=== PATIENT | female | born 1995 ===

== ENCOUNTER 2019-07-17 17:24 | Emergency (ER) | payer SELFPAY ==
[2019-07-17] MEDS ORDERED: Sodium Chloride 0.9% 2.5 ML Syringe FLUSH PRN (17:25)
[2019-07-17] MEDS ORDERED: Sodium Chloride 0.9% 1,000 ML IV ONE (17:25)
[2019-07-17] MEDS ORDERED: Sodium Chloride 0.9% 10 ML Syringe FLUSH PRN (17:25)
[2019-07-17] MEDS ORDERED: metroNIDAZOLE/Normal Saline 100 ML ONE (17:29)
[2019-07-17] MEDS ORDERED: Levofloxacin/Dextrose 5%-Water 500 MG in Premix Bag 1 BAG IV ONE (17:32)
[2019-07-17] MEDS ORDERED: ceFAZolin 1 GM in Premix Bag 1 BAG IV ONE (17:32)
[2019-07-17] MEDS ORDERED: Acetaminophen 650 MG Supp RECTAL ONE (17:32)
[2019-07-17] MEDS ORDERED: propofoL 50 ML ONE (17:35)
[2019-07-17] MEDS ORDERED: Propofol 200 MG/20 ML SDV IVPUSH ONE (17:35)
--- NOTE | 2019-07-17 17:55 | EDM.PDOC ---
ED HPI GENERAL MEDICAL PROBLEM - General Chief Complaint: Drug or Alcohol Abuse Stated Complaint: CODE BLUE Time Seen by Provider: 07/17/19 17:24 Source of Information: Reports: EMS Notes Reviewed History Limitations: Reports: Altered Mental Status, Respiratory Distress - History of Present Illness INITIAL COMMENTS - FREE TEXT/NARRATIVE: 33-year-old female presents to the emergency room polydrug overdose. Patient apparently aspirated prior to coming to the emergency room at the time is altered with a saturation in the 70s. While evaluating the patient felt that she needed immediate intubation. Patient had multiple bouts of emesis. No other information available. Severity: Severe ED ROS GENERAL - Review of Systems Review Of Systems: See Below (Able to obtain. Patient in respiratory distress underwent CPR and CODE BLUE) Constitutional: Reports: No Symptoms, Fever - Physical Exam Exam: See Below Text/Narrative:: 23-year-old female presents the emergency room with severe respiratory distress. Patient vomiting altered suction applied. Patient immediately intubated after 100 hours of succinylcholine and 2 mg of Versed. See the cords and lots of vomitus. Placement of endotracheal tube under direct visualization via kaleidoscope. 23 / at lips. Good color change and gurgling breath sounds bilaterally. Patient name lost her pulse 1 amp of epi was given IV. CPR instituted. After less than 5 minutes patient got her blood pressure and pulse back heart rate in the 150s. O2 sat 89%. Temperature is 107.4. Packs to her groin and armpits she is coming temperature is 105.5. Heart rate is 149 from 180, blood pressure is 126/52 and CO2 is 28. I have reviewed the chest x-ray and the tube is in good placement. And has been given antibiotics Ancef, Flagyl, and Levaquin. Unable to give additional history of the patient no records on this patient in our charts. Patient has no records at [place] . Of note patient has had 2 and half liters with less than 10 cc of IV fluids. ABG is pending . Discussed the case with Dr. Juan Ramon Bennett . He has accepted the patient to the ER Exam Limited By: Respiratory Distress General Appearance: Severe Distress Eye Exam: Right Eye: Abnormal EOM, Abnormal Pupil Nose: Normal Inspection, Normal Mucosa Throat/Mouth: Other (In the oral cavity / Vomitous ) Neck: Normal Inspection Cardiovascular: Tachycardia GI/Abdominal: Normal Bowel Sounds Extremities: Normal Inspection, Mottled (Multiple cuts to extremities) Skin Exam: Mottled ED Add Procedures - Additional/Other Procedure(s) Procedure(s) (Free Text): Patient intubated/7.5. Good. color change /had to suction large amount of vomitus./Direct visualization of the cords./23 at lips /fusion with succinylcholine 100/Versed 2/50 rocuronium . Sounds coarse bilaterally/1 attempts ABG performed in the left femoral EKG INTERPRETATION Rhythm: Other (sinus /Tachycardia) QRS: Normal ST-T: Normal QT: Normal Course - Orders/Labs/Meds Orders: Active Orders 24 hr Category Date Time Status EKG Documentation Completion [RC] STAT Care 07/17/19 17:26 Active Chest 1V Frontal [CR] Stat Exams 07/17/19 17:25 Ordered ACETAMINOPHEN [CHEM] Stat Lab 07/17/19 17:25 Ordered CBC WITH AUTO DIFF [HEME] Stat Lab 07/17/19 17:24 Ordered COMPREHENSIVE METABOLIC PN,CMP [CHEM] Stat Lab 07/17/19 17:25 Ordered CULTURE BLOOD [BC] Stat Lab 07/17/19 17:25 Ordered CULTURE BLOOD [BC] Stat Lab 07/17/19 17:25 Ordered DRUG SCREEN, URINE [URCHEM] Stat Lab 07/17/19 17:25 Ordered HCG QUALITATIVE,URINE [URCHEM] Stat Lab 07/17/19 17:25 Ordered SALICYLATE [CHEM] Stat Lab 07/17/19 17:25 Ordered UA RFX NARCISO AND CULT IF INDIC [URIN] Stat Lab 07/17/19 17:25 Ordered Levofloxacin/Dextrose 5%-Water [Levaquin in D5W 500 MG/ Med 07/17/19 17:32 Active 100 ML] 500 mg Premix Bag 1 bag IV ONETIME Sodium Chloride 0.9% [Normal Saline] 1,000 ml Med 07/17/19 17:25 Active IV STAT Sodium Chloride 0.9% [Saline Flush] Med 07/17/19 17:25 Active 10 ml FLUSH ASDIRECTED PRN Sodium Chloride 0.9% [Saline Flush] Med 07/17/19 17:25 Active 2.5 ml FLUSH ASDIRECTED PRN ceFAZolin [Ancef] 1 gm Med 07/17/19 17:32 Active Premix Bag 1 bag IV ONETIME Blood Culture x2 Reflex Set [OM.PC] Stat Oth 07/17/19 17:25 Ordered Saline Lock Insert [OM.PC] Stat Oth 07/17/19 17:25 Ordered Medication Orders Sodium Chloride (Normal Saline) 1,000 mls @ 999 mls/hr IV STAT ONE Stop: 07/17/19 18:25 Cefazolin Sodium/Dextrose 1 gm (/ Premix) 50 mls @ 100 mls/hr IV ONETIME ONE Stop: 07/17/19 18:01 Levofloxacin/Dextrose 500 mg/ (Premix) 100 mls @ 100 mls/hr IV ONETIME ONE Stop: 07/17/19 18:31 Sodium Chloride (Saline Flush) 10 ml FLUSH ASDIRECTED PRN PRN Reason: Keep Vein Open Sodium Chloride (Saline Flush) 2.5 ml FLUSH ASDIRECTED PRN PRN Reason: Keep Vein Open Meds: Medications Generic Name Dose Route Start Last Admin Trade Name Freq PRN Reason Stop Dose Admin Sodium Chloride 1,000 mls @ 999 mls/hr 07/17/19 17:25 Normal Saline IV 07/17/19 18:25 STAT ONE Cefazolin Sodium/Dextrose 1 gm 50 mls @ 100 mls/hr 07/17/19 17:32 / Premix IV 07/17/19 18:01 ONETIME ONE Levofloxacin/Dextrose 500 mg/ 100 mls @ 100 mls/hr 07/17/19 17:32 Premix IV 07/17/19 18:31 ONETIME ONE Sodium Chloride 10 ml 07/17/19 17:25 Saline Flush FLUSH ASDIRECTED PRN Keep Vein Open Sodium Chloride 2.5 ml 07/17/19 17:25 Saline Flush FLUSH ASDIRECTED PRN Keep Vein Open Discontinued Medications Generic Name Dose Route Start Last Admin Trade Name Freq PRN Reason Stop Dose Admin Acetaminophen 650 mg 07/17/19 17:32 Tylenol RECTAL 07/17/19 17:33 NOW ONE Metronidazole Confirm 07/17/19 17:29 Flagyl 500 Mg In Ns 100 Ml Administered 07/17/19 17:30 Dose 100 mls @ as directed .ROUTE .STK-MED ONE Propofol Confirm 07/17/19 17:35 Diprivan 50 Ml Administered 07/17/19 17:36 Dose 50 mls @ as directed .ROUTE .STK-MED ONE Propofol 20 mg 07/17/19 17:35 Diprivan 20 Ml IVPUSH 07/17/19 17:36 ONETIME ONE Departure - Departure Time of Disposition: 18:02 Disposition: DC/Tfer to Acute Hospital 02 Preliminary Cause of *Q: Respiratory Failure Condition: Critical Clinical Impression: Collapse with respiratory arrest on examination, Cardiac arrest, Sepsis - Discharge Information Referrals: PCP,None [Primary Care Provider] - - My Orders Last 24 Hours: My Active Orders 07/17/19 17:32 Levofloxacin/Dextrose 5%-Water [Levaquin in D5W 500 MG/100 ML] 500 mg Premix Bag 1 bag IV ONETIME ceFAZolin [Ancef] 1 gm Premix Bag 1 bag IV ONETIME - Assessment/Plan Last 24 Hours: My Active Orders 07/17/19 17:32 Levofloxacin/Dextrose 5%-Water [Levaquin in D5W 500 MG/100 ML] 500 mg Premix Bag 1 bag IV ONETIME ceFAZolin [Ancef] 1 gm Premix Bag 1 bag IV ONETIME
--- NOTE | 2019-07-17 18:15 | CR ---
Chest: Supine portable view of the chest was obtained. Comparison: No previous chest imaging is available. Endotracheal tube is seen. Tip lies slightly below the inferior level of clavicles in satisfactory position. Nasogastric tube is coiled within the stomach. Lungs are clear with no acute parenchymal change. Heart size and mediastinum are normal. Bony structures are unremarkable. Impression: 1. Satisfactory position of endotracheal tube. 2. Nasogastric tube coiled within the stomach. 3. Nothing acute is otherwise seen on portable chest x-ray. Diagnostic code #2 Study was dictated in MDT
[2019-07-17 18:45] LABS: BLOOD UREA NITROGEN,BUN 22 mg/dL (7.0-18.0); CARBON DIOXIDE,CO2 15.6 mmol/L (21.0-32.0); CHLORIDE,CL 103 mmol/L (98-107); GLUCOSE RANDOM 93 mg/dL (74-106); POTASSIUM,K 6.8 mmol/L (3.5-5.1); SODIUM,NA 139 mmol/L (136-145)
[2019-07-17 19:00] LABS: ACETAMINOPHEN <2.0 ug/mL
== END 2019-07-17 18:00 ==
LOC: MW.ED 17:24
DX: I46.9 Cardiac arrest, cause unspecified (principal); A41.9 Sepsis, unspecified organism
CPT/HCPCS: 31500; 36415; 36430; 36600; 71045; 80053; 80305; 80307; 81001; 81025; 82803; 85025; 86850; 86900; 86901; 86920; 86921; 86922; 87040; 92950; 99285; P9016